=== PATIENT | male | born 1965 | race Caucasian/White ===

== ENCOUNTER 2021-09-11 08:30 | Outpatient (CLI) | payer MEDICARE | END 2021-09-11 08:31 | disposition home or self-care (01) | LOC: CSHMRI 08:30 | PROVIDERS: ATTEND Specialist | DX: M62.81 Muscle weakness (generalized) (principal); M47.816 Spondylosis without myelopathy or radiculopathy, lumbar region; M51.36 Other intervertebral disc degeneration, lumbar region; M48.061 Spinal stenosis, lumbar region without neurogenic claudication; M48.07 Spinal stenosis, lumbosacral region | CPT/HCPCS: 72158 ==

== ENCOUNTER 2021-12-03 10:06 | Outpatient (CLI) | payer MEDICARE | END 2021-12-03 10:07 | disposition home or self-care (01) | LOC: CSHULT 10:06 | PROVIDERS: ATTEND Specialist | DX: R10.13 Epigastric pain (principal); K80.20 Calculus of gallbladder without cholecystitis without obstruction; K82.8 Other specified diseases of gallbladder | CPT/HCPCS: 76705 ==

== ENCOUNTER 2022-06-26 10:44 | Outpatient (CLI) | payer MEDICARE ==
[~2022-06-26 10:44] MED LIST: Iopamidol 300 61% 100 ML VIAL FS ONE
== END 2022-06-26 10:45 | disposition home or self-care (01) ==
LOC: CSHCT 10:44
PROVIDERS: ATTEND Specialist
DX: Z90.49 Acquired absence of other specified parts of digestive tract (principal); K40.20 Bilateral inguinal hernia, without obstruction or gangrene, not specified as recurrent; K43.9 Ventral hernia without obstruction or gangrene
CPT/HCPCS: 74177

== ENCOUNTER 2023-01-03 16:43 | Inpatient (IN) | payer MEDICARE ==
[2023-01-03 17:28] LABS: #Basophils 0.1 10x3/uL (0.0-0.2); #Eosinphils 0.4 10x3/uL (0.0-0.5); #Monocytes 0.9 10x3/uL (0.0-1.1); #Neutrophils 6.9 10x3/uL (1.5-8.4); %Eosinophils 4.3 % (0.0-6.0); %Lymphocytes 15.1 % (18.0-47.0); %Monocytes 8.7 % (0.0-10.0); %Neutrophils 70.6 % (40.0-75.0); Hemoglobin 10.9 g/dL (13.5-17.5); Mean Corpuscular HGB CONC 32.4 g/dL (32.0-36.0); Mean Corpuscular Volume 83.2 fl (81.2-95.1); Platelet Count 319 10x3/uL (150-450); RBC Distribution Width 16.4 % (11.5-14.5); Red Blood Cell (RBC) Count 4.04 10x6/uL (4.32-5.72); White Blood Cell (WBC) Count 9.7 10x3/uL (3.5-10.5)
[2023-01-03 17:47] LABS: ALT (SGPT) 19 U/L (8-55); AST (SGOT) 28 U/L (5-34); Albumin 3.8 g/dL (3.5-5.0); Alkaline Phosphatase 64 U/L (40-110); Anion Gap 17 mmol/L (10-20); BUN (Urea Nitrogen) 14 mg/dL (8.4-25.7); Bilirubin, Total 1.2 mg/dL (0.2-1.2); Calc. Creatinine Clearance 0 mL/min (70-130); Calcium 9.2 mg/dL (7.8-10.44); Carbon Dioxide 23 mmol/L (22-29); Chloride 99 mmol/L (98-107); Estimated GFR 75; Globulin 2.6 g/dL (2.4-3.5); Glucose 88 mg/dL (70-105); Potassium 4.9 mmol/L (3.5-5.1); Protein, Total 6.4 g/dL (6.0-8.3); Sodium 134 mmol/L (136-145)
[2023-01-03] MEDS ORDERED: Furosemide 40 MG/4 ML VIAL ONE (18:07)
[2023-01-03] MEDS ORDERED: Morphine 4 MG/ML VIAL ONE (19:14)
[2023-01-04] MEDS ORDERED: Acetaminophen/Codeine 30-300mg Tablet ONE ×4 (03:23→19:57)
[2023-01-04] MEDS: Acetaminophen/Codeine 30-300mg Tablet PO PRN ×4 (03:26→20:03)
[2023-01-04 03:29] LABS: #Basophils 0.1 10x3/uL (0.0-0.2); #Eosinphils 0.4 10x3/uL (0.0-0.5); #Monocytes 0.8 10x3/uL (0.0-1.1); #Neutrophils 5.1 10x3/uL (1.5-8.4); %Basophils 1.2 % (0.0-2.0); %Eosinophils 5.1 % (0.0-6.0); %Monocytes 9.4 % (0.0-10.0); %Neutrophils 63.1 % (40.0-75.0); Mean Corpuscular HGB CONC 32.5 g/dL (32.0-36.0); Mean Corpuscular Hemoglobin 26.8 pg (27.0-33.0); Mean Corpuscular Volume 82.4 fl (81.2-95.1); Mean Platelet Volume 9.2 fl (7.4-10.4); Platelet Count 319 10x3/uL (150-450); RBC Distribution Width 16.7 % (11.5-14.5); White Blood Cell (WBC) Count 8.1 10x3/uL (3.5-10.5)
[2023-01-04 03:43] LABS: ALT (SGPT) 10 U/L (8-55); AST (SGOT) 24 U/L (5-34); Albumin 3.9 g/dL (3.5-5.0); Alkaline Phosphatase 67 U/L (40-110); Anion Gap 13 mmol/L (10-20); BUN (Urea Nitrogen) 13 mg/dL (8.4-25.7); Bilirubin, Total 1.4 mg/dL (0.2-1.2); Calc. Creatinine Clearance 0 mL/min (70-130); Calcium 9.3 mg/dL (7.8-10.44); Carbon Dioxide 27 mmol/L (22-29); Chloride 101 mmol/L (98-107); Estimated GFR 78; Globulin 2.8 g/dL (2.4-3.5); Glucose 87 mg/dL (70-105); Magnesium 2.1 mg/dL (1.6-2.6); Potassium 4.6 mmol/L (3.5-5.1); Protein, Total 6.7 g/dL (6.0-8.3); Sodium 136 mmol/L (136-145)
[2023-01-04] MEDS ORDERED: Furosemide 40 MG/4 ML VIAL ONE (05:51)
[2023-01-04] MEDS ORDERED: Metoprolol Tartrate 50 MG TAB ONE ×2 (06:08→19:56)
[2023-01-04] MEDS ORDERED: Losartan Potassium 50 MG TAB ONE ×2 (06:09→19:54)
[2023-01-04] MEDS: Losartan Potassium 50 MG TAB PO SCH ×3 (06:10→21:21)
[2023-01-04] MEDS: Furosemide 40 MG/4 ML VIAL SLOW IVP SCH ×2 (06:10→16:21)
[2023-01-04] MEDS: Levothyroxine Sodium 125 MCG TAB PO SCH (06:10)
[2023-01-04] MEDS: Metoprolol Tartrate 50 MG TAB PO SCH ×3 (06:10→21:22)
[2023-01-04] MEDS ORDERED: Aspirin 81 mg Enteric Coated Tablet ONE (09:01)
[2023-01-04] MEDS ORDERED: Amlodipine 5 MG TAB ONE (09:02)
[2023-01-04] MEDS: Aspirin Chewable 81 MG TAB PO SCH (09:26)
[2023-01-04] MEDS: Amlodipine 5 MG TAB PO SCH (09:26)
[2023-01-04] MEDS ORDERED: Furosemide 20 MG/2 ML VIAL ONE (16:12)
[2023-01-05] MEDS: Acetaminophen/Codeine 30-300mg Tablet PO PRN ×5 (00:55→19:51)
[2023-01-05 05:13] LABS: #Basophils 0.1 10x3/uL (0.0-0.2); #Eosinphils 0.6 10x3/uL (0.0-0.5); #Monocytes 0.8 10x3/uL (0.0-1.1); #Neutrophils 5.2 10x3/uL (1.5-8.4); %Basophils 1.3 % (0.0-2.0); %Eosinophils 7.1 % (0.0-6.0); %Lymphocytes 20.9 % (18.0-47.0); %Monocytes 9.6 % (0.0-10.0); %Neutrophils 60.9 % (40.0-75.0); Hemoglobin 10.7 g/dL (13.5-17.5); Mean Corpuscular HGB CONC 32.3 g/dL (32.0-36.0); Mean Corpuscular Volume 83.4 fl (81.2-95.1); Mean Platelet Volume 9.5 fl (7.4-10.4); Platelet Count 333 10x3/uL (150-450); RBC Distribution Width 16.6 % (11.5-14.5); Red Blood Cell (RBC) Count 3.97 10x6/uL (4.32-5.72); White Blood Cell (WBC) Count 8.6 10x3/uL (3.5-10.5)
[2023-01-05 05:26] LABS: ALT (SGPT) 11 U/L (8-55); AST (SGOT) 19 U/L (5-34); Albumin 3.6 g/dL (3.5-5.0); Alkaline Phosphatase 67 U/L (40-110); Anion Gap 17 mmol/L (10-20); BUN (Urea Nitrogen) 20 mg/dL (8.4-25.7); Calc. Creatinine Clearance 121 mL/min (70-130); Calcium 8.7 mg/dL (7.8-10.44); Carbon Dioxide 26 mmol/L (22-29); Chloride 97 mmol/L (98-107); Estimated GFR 66; Globulin 2.6 g/dL (2.4-3.5); Glucose 134 mg/dL (70-105); Potassium 4.4 mmol/L (3.5-5.1); Protein, Total 6.2 g/dL (6.0-8.3); Sodium 136 mmol/L (136-145)
[2023-01-05] MEDS: Levothyroxine Sodium 125 MCG TAB PO SCH (06:25)
[2023-01-05] MEDS: Furosemide 40 MG/4 ML VIAL SLOW IVP SCH ×2 (06:25→13:59)
[2023-01-05] MEDS: Metoprolol Tartrate 50 MG TAB PO SCH ×2 (08:12→19:51)
[2023-01-05] MEDS: Losartan Potassium 50 MG TAB PO SCH ×2 (08:16→19:51)
[2023-01-05] MEDS: Amlodipine 5 MG TAB PO SCH (08:16)
[2023-01-05] MEDS: Aspirin Chewable 81 MG TAB PO SCH (08:17)
[2023-01-05] MEDS ORDERED: Senokot S 8.6-50 MG TAB PO SCH (15:15)
[2023-01-05] MEDS: Senokot S 8.6-50 MG TAB PO SCH (19:51)
[2023-01-06] MEDS: Acetaminophen/Codeine 30-300mg Tablet PO PRN ×5 (01:05→21:35)
[2023-01-06 03:57] LABS: #Basophils 0.1 10x3/uL (0.0-0.2); #Eosinphils 0.6 10x3/uL (0.0-0.5); #Monocytes 0.8 10x3/uL (0.0-1.1); #Neutrophils 3.7 10x3/uL (1.5-8.4); %Basophils 1.7 % (0.0-2.0); %Eosinophils 8.5 % (0.0-6.0); %Lymphocytes 26.6 % (18.0-47.0); %Monocytes 11.7 % (0.0-10.0); %Neutrophils 51.4 % (40.0-75.0); Hemoglobin 11.3 g/dL (13.5-17.5); Mean Corpuscular HGB CONC 31.5 g/dL (32.0-36.0); Mean Corpuscular Hemoglobin 26.7 pg (27.0-33.0); Mean Corpuscular Volume 84.7 fl (81.2-95.1); Mean Platelet Volume 9.4 fl (7.4-10.4); Platelet Count 320 10x3/uL (150-450); RBC Distribution Width 16.7 % (11.5-14.5); Red Blood Cell (RBC) Count 4.24 10x6/uL (4.32-5.72); White Blood Cell (WBC) Count 7.2 10x3/uL (3.5-10.5)
[2023-01-06 04:09] LABS: ALT (SGPT) 11 U/L (8-55); AST (SGOT) 23 U/L (5-34); Albumin 4.1 g/dL (3.5-5.0); Alkaline Phosphatase 63 U/L (40-110); Anion Gap 15 mmol/L (10-20); BUN (Urea Nitrogen) 22 mg/dL (8.4-25.7); Bilirubin, Total 1.2 mg/dL (0.2-1.2); Calc. Creatinine Clearance 0 mL/min (70-130); Calcium 9.2 mg/dL (7.8-10.44); Carbon Dioxide 27 mmol/L (22-29); Chloride 95 mmol/L (98-107); Estimated GFR 60; Glucose 88 mg/dL (70-105); Potassium 4.4 mmol/L (3.5-5.1); Protein, Total 7.1 g/dL (6.0-8.3); Sodium 133 mmol/L (136-145)
[2023-01-06 05:42] VITALS: BMI 39.9
[2023-01-06] MEDS: Furosemide 40 MG/4 ML VIAL SLOW IVP SCH (06:28)
[2023-01-06] MEDS: Levothyroxine Sodium 125 MCG TAB PO SCH (06:28)
[2023-01-06] MEDS ORDERED: Sodium Chloride 0.9% 1,000 ML IV SCH (07:30)
[2023-01-06] MEDS: Aspirin Chewable 81 MG TAB PO SCH (08:24)
[2023-01-06] MEDS: Metoprolol Tartrate 50 MG TAB PO SCH ×2 (08:25→20:47)
[2023-01-06] MEDS: Losartan Potassium 50 MG TAB PO SCH ×2 (08:26→20:47)
[2023-01-06] MEDS: Senokot S 8.6-50 MG TAB PO SCH ×2 (08:26→20:47)
[2023-01-06] MEDS: Amlodipine 5 MG TAB PO SCH (08:27)
[2023-01-06] MEDS: Furosemide 40 MG TAB PO SCH (17:28)
[2023-01-07] MEDS: Acetaminophen/Codeine 30-300mg Tablet PO PRN ×4 (01:45→14:04)
[2023-01-07 04:11] LABS: #Basophils 0.1 10x3/uL (0.0-0.2); #Eosinphils 0.5 10x3/uL (0.0-0.5); #Monocytes 0.7 10x3/uL (0.0-1.1); #Neutrophils 4.3 10x3/uL (1.5-8.4); %Basophils 1.5 % (0.0-2.0); %Eosinophils 6.4 % (0.0-6.0); %Lymphocytes 23.5 % (18.0-47.0); %Monocytes 9.9 % (0.0-10.0); %Neutrophils 58.6 % (40.0-75.0); Hemoglobin 10.8 g/dL (13.5-17.5); Mean Corpuscular HGB CONC 31.4 g/dL (32.0-36.0); Mean Corpuscular Hemoglobin 26.5 pg (27.0-33.0); Mean Corpuscular Volume 84.3 fl (81.2-95.1); Mean Platelet Volume 9.1 fl (7.4-10.4); Platelet Count 305 10x3/uL (150-450); RBC Distribution Width 16.5 % (11.5-14.5); Red Blood Cell (RBC) Count 4.08 10x6/uL (4.32-5.72); White Blood Cell (WBC) Count 7.4 10x3/uL (3.5-10.5)
[2023-01-07 04:15] LABS: ALT (SGPT) 13 U/L (8-55); AST (SGOT) 30 U/L (5-34); Albumin 3.8 g/dL (3.5-5.0); Alkaline Phosphatase 62 U/L (40-110); Anion Gap 15 mmol/L (10-20); BUN (Urea Nitrogen) 26 mg/dL (8.4-25.7); Bilirubin, Total 0.9 mg/dL (0.2-1.2); Calc. Creatinine Clearance 119 mL/min (70-130); Calcium 8.8 mg/dL (7.8-10.44); Carbon Dioxide 28 mmol/L (22-29); Chloride 97 mmol/L (98-107); Estimated GFR 65; Globulin 2.8 g/dL (2.4-3.5); Glucose 98 mg/dL (70-105); Potassium 4.5 mmol/L (3.5-5.1); Protein, Total 6.6 g/dL (6.0-8.3); Sodium 135 mmol/L (136-145)
[2023-01-07] MEDS: Levothyroxine Sodium 125 MCG TAB PO SCH (05:49)
[2023-01-07] MEDS: Losartan Potassium 50 MG TAB PO SCH (08:57)
[2023-01-07] MEDS: Metoprolol Tartrate 50 MG TAB PO SCH (08:57)
[2023-01-07] MEDS: Senokot S 8.6-50 MG TAB PO SCH (08:57)
[2023-01-07] MEDS: Aspirin Chewable 81 MG TAB PO SCH (08:57)
[2023-01-07] MEDS: Amlodipine 5 MG TAB PO SCH (08:57)
[2023-01-07] MEDS: Furosemide 40 MG TAB PO SCH ×2 (08:58→14:04)
[2023-01-07 11:51] VITALS: BP 106/77; TEMP 97.6
== END 2023-01-07 14:48 | disposition home or self-care (01) | DRG 291 ==
LOC: CSHERS 16:43 → INTOOBSV 01-04 01:16 → CSHERHOLD 01-04 01:16 → CSHTELE 01-04 21:20 → OBSVTOIN 01-07 07:37
PROVIDERS: ADMIT Student in an Organized Health Care Education/Training Program; ATTEND Internal Medicine
DX: I13.0 Hypertensive heart and chronic kidney disease with heart failure and stage 1 through stage 4 chronic kidney disease, or unspecified chronic kidney disease (principal); I50.33 Acute on chronic diastolic (congestive) heart failure; E87.1 Hypo-osmolality and hyponatremia; I48.19 Other persistent atrial fibrillation; N17.9 Acute kidney failure, unspecified; E66.9 Obesity, unspecified; F17.290 Nicotine dependence, other tobacco product, uncomplicated; Z96.652 Presence of left artificial knee joint; G89.29 Other chronic pain; I87.2 Venous insufficiency (chronic) (peripheral); I10 Essential (primary) hypertension; E03.9 Hypothyroidism, unspecified; Z88.1 Allergy status to other antibiotic agents; Z88.8 Allergy status to other drugs, medicaments and biological substances; Z79.899 Other long term (current) drug therapy; Z79.890 Hormone replacement therapy; Z98.84 Bariatric surgery status; Z90.89 Acquired absence of other organs; Z90.49 Acquired absence of other specified parts of digestive tract; Z98.49 Cataract extraction status, unspecified eye; Z82.49 Family history of ischemic heart disease and other diseases of the circulatory system; Z87.11 Personal history of peptic ulcer disease; Z86.16 Personal history of COVID-19; N18.9 Chronic kidney disease, unspecified; I34.0 Nonrheumatic mitral (valve) insufficiency
CPT/HCPCS: 36415; 71045; 80053; 83735; 83880; 84484; 85025; 93005; 93010; 93306; 96372; 96374; 96375; 96376; G0378; J1650; J1940; J2270; J7050